=== PATIENT | male | born 1945 | race Caucasian/White ===

== ENCOUNTER 2018-08-17 16:46 | Emergency (ER) | payer OTHER ==
[~2018-08-17] VITALS: Ht 190.5 cm; Wt 79.5 kg
[2018-08-17 16:56] VITALS: Ht 190.5 cm; Wt 79.5 kg
[2018-08-17 17:35] LABS: BASOPHILS 0.6 % (0-2); EOSINOPHILS 3.9 % (0-7); HEMATOCRIT 39.3 % (42.0-54.0); HEMOGLOBIN 13.3 g/dL (13.5-17.5); LYMPHOCYTES 25.8 % (15-50); MCH 33.8 pg (26.0-34.0); MCHC 33.8 g/dL (31.0-37.0); MCV 99.7 fL (80.0-100.0); MEAN PLATELET VOLUME 8.9 fL (7.4-10.4); MONOCYTES 10.4 % (2-11); NEUTROPHILS 59.3 % (40-80); PLATELET COUNT 164 10x3/uL (130-400); RBC 3.94 10x6/uL (4.20-6.10); RDW 12.4 % (11.5-14.5); WBC 4.9 10x3/uL (4.8-10.8)
[2018-08-17 17:47] LABS: APTT 35.4 SECONDS (22.8-39.4); INR 0.97 (0.85-1.17); PROTIME 12.4 SECONDS (11.6-15.0)
[2018-08-17 17:48] LABS: ALBUMIN 3.7 g/dL (3.4-5.0); ALKALINE PHOSPHATASE 84 U/L (46-116); ALT (SGPT) 24 U/L (10-68); BILIRUBIN - TOTAL 0.32 mg/dL (0.2-1.3); CALC OSMOLALITY 268 mosm/kg (275-300); CALCIUM 8.6 mg/dL (8.5-10.1); CARBON DIOXIDE 31.4 mmol/L (21.0-32.0); CHLORIDE - SERUM 96 mmol/L (98-107); CREATININE - SERUM 0.7 mg/dL (0.6-1.3); GLUCOSE 84 mg/dL (74-106); PROTEIN - SERUM 7.8 g/dL (6.4-8.2); SODIUM 135 mmol/L (136-145); UREA NITROGEN 12 mg/dL (7-18); eGFR NON AFRICAN AMERICAN > 90 mL/min (90-120)
[2018-08-17 18:20] LABS: CKMB 6.4 U/L (0.0-3.6); CREATINE KINASE 159 UL (21-232); PRO BNP 117 pg/mL (0-125); TROPONIN-I < 0.017 ng/mL (0.000-0.060)
[2018-08-17] MEDS ORDERED: LEVAQUIN750 MG PO (20:39)
[2018-08-17 21:00] VITALS: BP 157/93
== END 2018-08-17 21:00 | disposition home or self-care (01) ==
LOC: D.ER 16:46
PROVIDERS: Family Medicine
DX: J18.9 Pneumonia, unspecified organism (principal); J44.1 Chronic obstructive pulmonary disease with (acute) exacerbation; F17.200 Nicotine dependence, unspecified, uncomplicated

== ENCOUNTER 2019-03-11 18:12 | Inpatient (IN) | payer OTHER, MEDICARE ==
[~2019-03-11] VITALS: Ht 190.5 cm; Wt 77.1 kg
[~2019-03-11 18:12] MED LIST: LEVAQUIN750 MG PO
[2019-03-11 19:19] VITALS: BP 110/70
[2019-03-11 21:06] VITALS: BP 127/85
[2019-03-11 21:13] LABS: BASOPHILS 0.5 % (0-2); EOSINOPHILS 3.7 % (0-7); HEMATOCRIT 39.6 % (42.0-54.0); HEMOGLOBIN 14.5 g/dL (13.5-17.5); IMMATURE GRANULOCYTES 0.2 % (0-5); LYMPHOCYTES 25.3 % (15-50); MCH 35.8 pg (26.0-34.0); MCHC 36.6 g/dL (31.0-37.0); MCV 97.8 fL (80.0-100.0); MONOCYTES 8.8 % (2-11); NEUTROPHILS 61.5 % (40-80); PLATELET COUNT 149 10x3/uL (130-400); RBC 4.05 10x6/uL (4.20-6.10); RDW 13.3 % (11.5-14.5); WBC 6.5 10x3/uL (4.8-10.8)
[2019-03-11 21:23] LABS: ALBUMIN 3.7 g/dL (3.4-5.0); ALKALINE PHOSPHATASE 105 U/L (46-116); ALT (SGPT) 52 U/L (10-68); BILIRUBIN - TOTAL 0.42 mg/dL (0.2-1.3); CALC OSMOLALITY 246 mosm/kg (275-300); CALCIUM 8.5 mg/dL (8.5-10.1); CARBON DIOXIDE 26.3 mmol/L (21.0-32.0); CHLORIDE - SERUM 90 mmol/L (98-107); CREATININE - SERUM 0.7 mg/dL (0.6-1.3); GLUCOSE 83 mg/dL (74-106); POTASSIUM - SERUM 4.2 mmol/L (3.5-5.1); PROTEIN - SERUM 7.5 g/dL (6.4-8.2); SODIUM 124 mmol/L (136-145); UREA NITROGEN 6 mg/dL (7-18); eGFR NON AFRICAN AMERICAN > 90 mL/min (90-120)
[2019-03-11 22:46] VITALS: BP 128/99
[2019-03-11] MEDS ORDERED: ALBUTEROL SULF8.5 GM INH (23:32)
[2019-03-11] MEDS ORDERED: PULMICORT0.25 MG/1 INH (23:32)
[2019-03-11] MEDS ORDERED: MUCINEX600 MG PO (23:33)
[2019-03-11] MEDS ORDERED: COZAAR25 MG PO (23:34)
[2019-03-11] MEDS ORDERED: MELATONIN 3 MG1 TAB PO (23:34)
[2019-03-11] MEDS ORDERED: MOBIC7.5 MG PO (23:35)
[2019-03-11] MEDS ORDERED: ROBAXIN500 MG PO (23:36)
[2019-03-11] MEDS ORDERED: TOPROL XL50 MG PO (23:37)
[2019-03-11] MEDS ORDERED: TRAZODONE HCL150 MG PO (23:38)
[2019-03-11] MEDS ORDERED: CREON (PANCRELI1 CAP PO (23:50)
[2019-03-11 23:53] VITALS: BP 122/80; BMI 21.2
[2019-03-12 03:00] VITALS: BP 125/82
[2019-03-12 05:59] LABS: BASOPHILS 0.5 % (0-2); EOSINOPHILS 5.1 % (0-7); HEMATOCRIT 38.5 % (42.0-54.0); IMMATURE GRANULOCYTES 0.2 % (0-5); LYMPHOCYTES 21.6 % (15-50); MCH 35.8 pg (26.0-34.0); MCHC 36.4 g/dL (31.0-37.0); MCV 98.5 fL (80.0-100.0); MEAN PLATELET VOLUME 9.4 fL (7.4-10.4); MONOCYTES 11.4 % (2-11); NEUTROPHILS 61.2 % (40-80); PLATELET COUNT 162 10x3/uL (130-400); RBC 3.91 10x6/uL (4.20-6.10); RDW 13.4 % (11.5-14.5)
[2019-03-12 06:28] LABS: CALC OSMOLALITY 255 mosm/kg (275-300); CALCIUM 8.7 mg/dL (8.5-10.1); CARBON DIOXIDE 26.9 mmol/L (21.0-32.0); CHLORIDE - SERUM 96 mmol/L (98-107); CREATININE - SERUM 0.7 mg/dL (0.6-1.3); GLUCOSE 88 mg/dL (74-106); PHOSPHOROUS 3.6 mg/dL (2.5-4.9); POTASSIUM - SERUM 4.5 mmol/L (3.5-5.1); SODIUM 129 mmol/L (136-145); UREA NITROGEN 7 mg/dL (7-18); WBC 4.3 10x3/uL (4.8-10.8); eGFR NON AFRICAN AMERICAN > 90 mL/min (90-120)
[2019-03-12 06:30] LABS: PROTIME 12.7 SECONDS (11.6-15.0)
[2019-03-12 09:24] LABS: % SATURATION 38 % (15-55); IRON 89 ug/dl (35-150); TOTAL IRON BIND CAPACITY 229 ug/dl (260-445); UNSAT IRON BIND CAPACITY 140 ug/dl (150-375)
[2019-03-12 09:39] VITALS: BP 130/80
[2019-03-12 11:05] VITALS: BP 122/79
[2019-03-12 11:57] VITALS: Ht 190.5 cm; Wt 77.1 kg
[2019-03-12 15:18] LABS: APPEARANCE CLEAR (CLEAR); COLOR YELLOW (YELLOW)
[2019-03-12 15:20] LABS: BILIRUBIN NEGATIVE (NEGATIVE); GLUCOSE NEGATIVE (NEGATIVE); KETONE SMALL mg/dL (NEGATIVE); NITRITE NEGATIVE (NEGATIVE); PROTEIN NEGATIVE (NEGATIVE); UROBILINOGEN NORMAL (NORMAL)
[2019-03-12 15:26] LABS: RED CELLS - URINE OCC /hpf (0-5); WHITE CELLS - URINE 0-5 /hpf (0-5)
[2019-03-12 16:00] VITALS: BP 132/80
[2019-03-12 19:00] VITALS: BP 130/75
--- NOTE | 2019-03-12 19:11 | MORECARE ---
CASE MANAGEMENT DISCHARGE SUMMARY PATIENT: ALEJANDRO ROMERO UNIT: [id number] ADM DATE: 03/11/19 AGE: 73 : 47 SEX: M ROOM/BED: D.1208 AUTHOR: ESTRELLA LYNCH PHYSICIAN: REFERRING PHYSICIAN: JACOBO DOWNEY MD DATE OF SERVICE: 03/12/19 Discharge Plan Patient Name: ALEJANDRO ROMERO Facility: [facility]:[place] : 1945 Planned Disposition: Home Anticipated Discharge Date: Discharge Date: Expected LOS: Initial Reviewer: [email or web address] Initial Review Date: 03/12/2019 Generated: 03/12/19 8:11 pm Comments DCP- Discharge Planning Updated by [email or web address]: Tory Patricio on 03/12/19 6:[address] Patient Name: ALEJANDRO ROMERO Admission Status: ER Accout number: [id number] Admission Date: 03-11-2019 : 1945 Admission Diagnosis: Attending: JACOBO DOWNEY Current LOS: 1 Anticipated DC Date: Planned Disposition: Home Primary Insurance: [employer] Discharge Planning Comments: CM met with patient at bedside after explaining CM role and obtaining verbal consent. Patient lives at home alone where he is independent with his care and plans to return there upon discharge. Patient feels this would be a safe discharge. CM discussed availability / needs of home health and medical equipment. Patient denies any discharge needs at this time. Patient states he will have his family drive him home upon discharge. CM will continue to follow and assist as needed with discharge planning / needs. Donor Services Team Leader: Tory Patricio DCP- Discharge Planning Updated by [email or web address]: Anita Garza on 03/12/19 10:[address] CM noted [facility] status, spoke to Tory in the Business office regarding patient preference. Tory reported the patient requested transfer. CM met with patient and he signed consent to transfer, cm faxed form to the [facility] and spoke to Letha @ the [place]. Patient has been placed on list for transfer. Amberly TOVAR's number given to doc to doc. Nurse on Med notified that the VA will be calling for report on the patient if a bed is available. Anita Garza RN, [facility] DCPIA - Discharge Planning Initial Assessment Updated by [email or web address]: Tory Patricio on 03/12/19 7:09 pm * Is the patient Alert and Oriented? Yes * How many steps to enter\exit or inside your home? * PCP [facility] * Pharmacy [facility] * Preadmission Environment Home Alone * ADLs Independent * Equipment Shower Chair * List name and contact numbers for known caregivers / representatives who currently or will assist patient after discharge: SHUN PHAN - CHAR- [phone] * Verbal permission to speak to the caregivers and representatives has been obtained from the patient. N/A * Community resources currently utilized None * Additional services required to return to the preadmission environment? No * Can the patient safely return to the preadmission environment? Yes * Has this patient been hospitalized within the prior 30 days at any hospital? No Patient Name: ALEJANDRO ROMERO Page [id number] at 1911 All edits/amendments must be made on the electronic document DICTATION DATE: 03/12/191910 BREAKER BOSS: KYLIE 03/12/191910 RPT#: [id number] DC DATE: STATUS: ADM IN [facility] [address] [place] [address] END OF REPORT
[2019-03-12 23:00] VITALS: BP 128/82
[2019-03-13 03:00] VITALS: BP 128/78
[2019-03-13 06:00] LABS: BASOPHILS 0.6 % (0-2); EOSINOPHILS 3.6 % (0-7); HEMATOCRIT 35.4 % (42.0-54.0); HEMOGLOBIN 12.3 g/dL (13.5-17.5); IMMATURE GRANULOCYTES 0.2 % (0-5); LYMPHOCYTES 25.4 % (15-50); MCH 34.7 pg (26.0-34.0); MCHC 34.7 g/dL (31.0-37.0); MEAN PLATELET VOLUME 9.6 fL (7.4-10.4); MONOCYTES 12.4 % (2-11); NEUTROPHILS 57.8 % (40-80); PLATELET COUNT 151 10x3/uL (130-400); RBC 3.54 10x6/uL (4.20-6.10); RDW 13.6 % (11.5-14.5); WBC 4.8 10x3/uL (4.8-10.8)
[2019-03-13 06:20] LABS: CARBON DIOXIDE 29.6 mmol/L (21.0-32.0); CHLORIDE - SERUM 97 mmol/L (98-107); CREATININE - SERUM 0.7 mg/dL (0.6-1.3); GLUCOSE 94 mg/dL (74-106); SODIUM 132 mmol/L (136-145); eGFR NON AFRICAN AMERICAN > 90 mL/min (90-120)
[2019-03-13 06:23] LABS: CALC OSMOLALITY 263 mosm/kg (275-300); POTASSIUM - SERUM 3.7 mmol/L (3.5-5.1); UREA NITROGEN 10 mg/dL (7-18)
--- NOTE | 2019-03-13 20:08 | MORECARE ---
CASE MANAGEMENT DISCHARGE SUMMARY PATIENT: ALEJANDRO ROMERO UNIT: [id number] ADM DATE: 03/11/19 AGE: 73 : 46 SEX: M ROOM/BED: D.1208 AUTHOR: ESTRELLA LYNCH PHYSICIAN: REFERRING PHYSICIAN: JACOBO DOWNEY MD DATE OF SERVICE: 03/13/19 Discharge Plan Patient Name: ALEJANDRO ROMERO Facility: [facility]:[place] : 1945 Planned Disposition: Home Anticipated Discharge Date: Discharge Date: 03/13/2019 Expected LOS: Initial Reviewer: [email or web address] Initial Review Date: 03/12/2019 Generated: 03/13/19 9:08 pm Comments DCP- Discharge Planning Updated by [email or web address]: Tory Patricio on 03/12/19 6:[address] Patient Name: ALEJANDRO ROMERO Admission Status: ER Accout number: [id number] Admission Date: 03-11-2019 : 1945 Admission Diagnosis: Attending: JACOBO DOWNEY Current LOS: 1 Anticipated DC Date: Planned Disposition: Home Primary Insurance: [employer] Discharge Planning Comments: CM met with patient at bedside after explaining CM role and obtaining verbal consent. Patient lives at home alone where he is independent with his care and plans to return there upon discharge. Patient feels this would be a safe discharge. CM discussed availability / needs of home health and medical equipment. Patient denies any discharge needs at this time. Patient states he will have his family drive him home upon discharge. CM will continue to follow and assist as needed with discharge planning / needs. Senior Software Engineer Analytics: Tory Patricio DCP- Discharge Planning Updated by [email or web address]: Anita Garza on 03/12/19 10:[address] CM noted VA status, spoke to Tory in the Business office regarding patient preference. Tory reported the patient requested transfer. CM met with patient and he signed consent to transfer, cm faxed form to the [facility] and spoke to Letha @ the [place]. Patient has been placed on list for transfer. Amberly TOVAR's number given to doc to doc. Nurse on Med notified that the VA will be calling for report on the patient if a bed is available. Anita Garza RN, [facility] DCPIA - Discharge Planning Initial Assessment Updated by [email or web address]: Tory Patricio on 03/12/19 7:09 pm * Is the patient Alert and Oriented? Yes * How many steps to enter\exit or inside your home? * PCP [facility] * Pharmacy [facility] * Preadmission Environment Home Alone * ADLs Independent * Equipment Shower Chair * List name and contact numbers for known caregivers / representatives who currently or will assist patient after discharge: SHUN PHAN - DAUGHTER- [phone] * Verbal permission to speak to the caregivers and representatives has been obtained from the patient. N/A * Community resources currently utilized None * Additional services required to return to the preadmission environment? No * Can the patient safely return to the preadmission environment? Yes * Has this patient been hospitalized within the prior 30 days at any hospital? No Last DP export: 03/12/19 6:11 p Patient Name: ALEJANDRO ROMERO Page [id number] at 2008 All edits/amendments must be made on the electronic document DICTATION DATE: 03/13/192006 TAPING SUPERVISOR: KYLIE 03/13/192006 RPT#: [id number] DC DATE:03/13/19 STATUS: DIS IN [facility] [address] [place] [address] END OF REPORT
== END 2019-03-13 10:05 | disposition left against medical advice (07) | DRG 300 ==
LOC: D.ER 18:12 → D.M3 22:08
PROVIDERS: Family Medicine; ADMIT Internal Medicine Nephrology; ATTEND Internal Medicine Nephrology
DX: I82.412 Acute embolism and thrombosis of left femoral vein (principal); E87.1 Hypo-osmolality and hyponatremia; K86.1 Other chronic pancreatitis; F17.213 Nicotine dependence, cigarettes, with withdrawal; D53.9 Nutritional anemia, unspecified; I25.10 Atherosclerotic heart disease of native coronary artery without angina pectoris; F10.10 Alcohol abuse, uncomplicated

== ENCOUNTER 2020-10-24 15:55 | Emergency (ER) | payer OTHER, MEDICARE ==
[2019-03-12 11:57] VITALS: Ht 190.5 cm; Wt 45.5 kg
[~2020-10-24] VITALS: Ht 190.5 cm; Wt 45.5 kg
[~2020-10-24 15:55] MED LIST changes: +ALBUTEROL SULF8.5 GM INH; +COZAAR25 MG PO; +CREON (PANCRELI1 CAP PO; +MELATONIN 3 MG1 TAB PO; +MOBIC7.5 MG PO; +MUCINEX600 MG PO; +PULMICORT0.25 MG/1 INH; +ROBAXIN500 MG PO; +TOPROL XL50 MG PO; +TRAZODONE HCL150 MG PO
[2020-10-24 16:20] LABS: BASOPHILS 0.2 % (0-2); EOSINOPHILS 0.2 % (0-7); HEMATOCRIT 30.1 % (42.0-54.0); HEMOGLOBIN 9.9 g/dL (13.5-17.5); IMMATURE GRANULOCYTES 0.2 % (0-5); LYMPHOCYTE ABS# 1.43 10x3/uL (1.32-3.57); LYMPHOCYTES 13.7 % (15-50); MCH 32.9 pg (26.0-34.0); MCHC 32.9 g/dL (31.0-37.0); MEAN PLATELET VOLUME 8.5 fL (7.4-10.4); MONOCYTES 5.8 % (2-11); NEUTROPHIL ABS# 8.37 10x3/uL (1.78-5.38); NEUTROPHILS 79.9 % (40-80); PLATELET COUNT 445 10x3/uL (130-400); RBC 3.01 10x6/uL (4.20-6.10); RDW 12.8 % (11.5-14.5); WBC 10.5 10x3/uL (4.8-10.8)
[2020-10-24 16:26] LABS: INR 1.69 (0.85-1.17); PROTIME 18.4 SECONDS (11.6-15.0)
[2020-10-24 16:27] LABS: APTT 50.1 SECONDS (22.8-39.4); CALC OSMOLALITY 262 mosm/kg (275-300); CALCIUM 8.5 mg/dL (8.5-10.1); CARBON DIOXIDE 29.4 mmol/L (21.0-32.0); CHLORIDE - SERUM 93 mmol/L (98-107); CREATININE - SERUM 0.7 mg/dL (0.6-1.3); POTASSIUM - SERUM 4.3 mmol/L (3.5-5.1); SODIUM 129 mmol/L (136-145); UREA NITROGEN 11 mg/dL (7-18); eGFR NON AFRICAN AMERICAN > 90 mL/min (90-120)
[2020-10-24 16:28] LABS: GLUCOSE 193 mg/dL (74-106)
[2020-10-24 16:42] LABS: ALKALINE PHOSPHATASE 85 U/L (30-120); ALT (SGPT) 32 U/L (10-68); CKMB 1.3 U/L (0.0-3.6); CREATINE KINASE 33 UL (21-232); PRO BNP 594 pg/mL (0-125); PROTEIN - SERUM 7.3 g/dL (6.4-8.2); TROPONIN-I < 0.017 ng/mL (0.000-0.060)
[2020-10-24 23:34] VITALS: BP 90/57
== END 2020-10-24 23:54 | disposition other institution (70) ==
LOC: D.ER 15:55
PROVIDERS: Family Medicine
DX: J18.9 Pneumonia, unspecified organism (principal); J44.1 Chronic obstructive pulmonary disease with (acute) exacerbation; R06.02 Shortness of breath